=== PATIENT | female | born 1990 | race Caucasian/White ===

== ENCOUNTER 2022-04-18 18:18 | Emergency (ER) | payer BC, MEDICAID ==
[2022-04-21 06:12] LABS: CHLAMYDIA TRACHOMATIS, NAA Negative (Negative); NEISSERIA GONORRHOEAE, NAA Negative (Negative)
[2022-04-21 21:07] LABS: T PALLIDUM ANTIBODIES Non Reactive (Non Reactive)
== END 2022-04-18 21:05 | disposition home or self-care (01) ==
LOC: JP.ED 18:18
DX: N76.0 Acute vaginitis (principal); B96.89 Other specified bacterial agents as the cause of diseases classified elsewhere; Z79.899 Other long term (current) drug therapy
CPT/HCPCS: 36415; 81001; 81025; 86780; 87210; 87449; 87491; 87591; 99283

== ENCOUNTER 2024-01-25 04:43 | Emergency (ER) | payer BC, MEDICAID | END 2024-01-25 05:14 | disposition home or self-care (01) | LOC: JP.ED 04:43 | DX: K04.7 Periapical abscess without sinus (principal); F17.210 Nicotine dependence, cigarettes, uncomplicated | CPT/HCPCS: 99283 ==